=== PATIENT | male | born 1950 | race Caucasian/White ===

== ENCOUNTER 2018-07-30 02:53 | Inpatient (IN) | payer OTHER ==
[~2018-07-30] VITALS: Ht 175.3 cm; Wt 87.5 kg
--- NOTE | 2018-07-30 02:59 | NUR ---
MEDICALLY CLEARED BY DR LEMUS
[2018-07-30] MEDS ORDERED: ATORVASTATIN CALCIUM 80 MG (03:05)
[2018-07-30] MEDS ORDERED: LISINOPRIL 5MG TABLET (03:05)
[2018-07-30] MEDS ORDERED: METFORMIN HYDROCHLORIDE 1000 MG (03:05)
[2018-07-30] MEDS ORDERED: CLOPIDOGREL 75MG TABLET (03:05)
--- NOTE | 2018-07-30 03:28 | NUR ---
TRANSFERED TO [facility] VIA [facility] WITH NO DISTRESS NOTED
[2018-07-30 03:45] VITALS: BP 123/71
[2018-07-30] MEDS ORDERED: LORAZEPAM 1 MG TABLET PO PRN (04:45)
[2018-07-30] MEDS ORDERED: MAG HYDROX/AL HYDROX/SIMETH 30 ML LIQUID UDC PO PRN (04:45)
[2018-07-30] MEDS ORDERED: ACETAMINOPHEN 325 MG TABLET PO PRN (04:45)
[2018-07-30] MEDS ORDERED: MAGNESIUM HYDROXIDE 30 ML LIQUID UDC PO PRN (04:45)
[2018-07-30] MEDS ORDERED: ZOLPIDEM 5 MG TABLET PO PRN (04:45)
--- NOTE | 2018-07-30 04:45 | NUR ---
Admitted to [facility] Dx. Major Depression. Patient awake alert & oriented, no SOB denies chest pain. Admission assessment initiated, remains depressed & refused to undergo head-to-toe body assessment. Patient verbally responsive, no suicidal thought noted. Refused to give contact information of his family. Vital signs are stable. Instructed to take a shower. Patient cooperative.
--- NOTE | 2018-07-30 05:02 | NUR ---
Patient took a shower. Assisted with all needs.
--- NOTE | 2018-07-30 06:21 | NUR ---
Patient still asleep. No acute resp distress.
[2018-07-30 07:30] VITALS: BP 108/65
[2018-07-30] MEDS ORDERED: LISINOPRIL 5 MG TABLET PO SCH (09:00)
[2018-07-30 09:39] LABS: BILIRUBIN,TOTAL 0.3 mg/dL (0.2-1.0); CREATININE 1.1 mg/dL (0.6-1.3); POTASSIUM 5.4 mmol/L (3.5-5.1); TOTAL PROTEIN, SERUM 8.2 g/dL (6.4-8.2)
[2018-07-30 09:47] LABS: BASOPHILS # (AUTO) 0.1 K/uL (0.0-8.0); BASOPHILS % (AUTO) 0.6 % (0.0-2.0); EOSINOPHILS # (AUTO) 0.2 K/uL (0.0-0.7); EOSINOPHILS % (AUTO) 1.9 % (0.0-7.0); HEMATOCRIT 50.1 % (36.7-47.1); HEMOGLOBIN 16.7 g/dL (12.5-16.3); LYMPHOCYTES # (AUTO) 1.4 K/uL (20.0-40.0); LYMPHOCYTES % (AUTO) 17.3 % (20.5-51.5); MEAN CORPUSCULAR HEMOGLOBIN 28.8 uug (23.8-33.4); MEAN CORPUSCULAR HGB CONC 33 g/dL (32.5-36.3); MEAN CORPUSCULAR VOLUME 86.1 fL (73.0-96.2); MONOCYTES # (AUTO) 0.7 K/uL (2.0-10.0); MONOCYTES % (AUTO) 8.2 % (0.0-11.0); NEUTROPHILS # (AUTO) 5.9 K/uL (1.8-8.9); PLATELET COUNT (AUTO) 324 K/uL (152-348); RED BLOOD CELL COUNT(AUTO) 5.82 MIL/uL (4.06-5.63); WHITE BLOOD COUNT (AUTO) 8.2 K/uL (3.6-10.2)
[2018-07-30] MEDS ORDERED: INSULIN REGULAR, HUMAN 300 UNITS/3 ML VIAL SQ PRN (10:00)
[2018-07-30] MEDS ORDERED: SODIUM POLYSTYRENE SULFONATE 15 G/60 ML LIQUID UDC PO ONE (10:00)
[2018-07-30] MEDS ORDERED: DEXTROSE 50% 50 ML DISP.SYRIN IV PRN (10:00)
[2018-07-30] MEDS ORDERED: SODIUM POLYSTYRENE SULF POWDER 15 GM UDC PO ONE (10:30)
[2018-07-30] MEDS: CLOPIDOGREL 75 MG TABLET PO SCH (10:34)
[2018-07-30] MEDS: METFORMIN HCL 500 MG TABLET PO SCH ×2 (10:34→17:57)
--- NOTE | 2018-07-30 10:36 | NUR ---
WOUND CARE CONSULT WOUND CARE RECEIVED CONSULT FOR LEFT BIG TOE CELLULITIS/DTI. WOUND CARE WILL DEFER CONSULT AND TREATMENT PLANS TO DPM DR BARAHONA WHO HAS BEEN NOTIFIED OF THIS CONSULT BY NUCLEAR MEDICINE SPECIALIST. PATIENT WITH AIDE AT 22, WILL SEE PRN.
--- NOTE | 2018-07-30 12:04 | NUR ---
Initial Discharge Note: Patient is a 68 year old male who is homeless. Patient states he lives out of his van and would like to return to his van when ready for discharge. Patient has no family contacts and is self-sufficient. health worker will continue to collaborate with patient and MD on a safe and proper discharge.
[2018-07-30] MEDS: BLOOD SUGAR DIAGNOSTIC 1 EACH STRIP VI SCH ×3 (12:15→20:07)
[2018-07-30] MEDS: INSULIN REGULAR, HUMAN 300 UNIT/3 ML VIAL SQ PRN ×2 (12:18→18:00)
[2018-07-30 16:00] VITALS: BP 101/52
[2018-07-30 20:00] VITALS: BP 118/60
[2018-07-30] MEDS ORDERED: ATORVASTATIN 40 MG TABLET PO SCH (21:00)
[2018-07-30] MEDS ORDERED: INSULIN GLARGINE,HUM 300 UNITS/3 ML CARTRIDGE SQ SCH (21:00)
--- NOTE | 2018-07-31 06:53 | NUR ---
Pt refused AM labs and accu check x2.
[2018-07-31] MEDS: BLOOD SUGAR DIAGNOSTIC 1 EACH STRIP VI SCH (06:55)
[2018-07-31] MEDS ORDERED: ESCITALOPRAM OXALATE 10 MG TABLET PO SCH (09:00)
[2018-07-31] MEDS ORDERED: LISINOPRIL 5 MG TABLET PO SCH (09:00)
--- NOTE | 2018-07-31 09:30 | NUR ---
Gps/Pattern Developer- Patient's refusing to stay, 72 hour hold expires at [address] Handy was called and informed by Director Religious Education . Explained well to patient patient process and consequences , was given options, patient refused to stay Voluntary, wants to leave. Requesting to have shower first. Patient alert, oriented, denies S.I.at this time , verbalized feelings of being sad, but able to take care od self per patient. Plan to take bus and go to his friend's house in [facility] area per pt.
[2018-07-31] MEDS: METFORMIN HCL 500 MG TABLET PO SCH (09:40)
[2018-07-31] MEDS: CLOPIDOGREL 75 MG TABLET PO SCH (09:40)
--- NOTE | 2018-07-31 11:40 | NUR ---
Gps/Testing Tech- All belongings given back to patient. Left AMA , no complaints noted.
--- NOTE | 2018-08-02 10:41 | NUR ---
[facility] DC NOTE: Patient left [facility] on 07/31/2018 at 11:40am. Patient hold on 07/31/2018 11:26am. Patient was offered to sign voluntary, but per nursing notes, patient refused to stay and chose to take bus and go to his friend's house in the [place] area. As patient is homeless, social worker aide called number [[phone]] listed on face sheet and spoke with patient. sort line worker offered homeless resources to patient including homeless shelters, mental health resources. Per patient, he does not "need help with mental health problems" and refused resources. Patient also refused care home resources stating they are "awful". sort line worker instructed patient to seek emergency medical attention or call 911 should he feel he is experiencing a psychiatric emergency. Patient in agreement with information. Addendum: 08/02/18 at 1121 by BEKAH CANTRELL sort line worker received phone call from [place] after daycare teacher, Caridad [[phone]], inquiring if patient needed after care appointments. sort line worker informed Caridad that patient chose to leave [facility] on 07/31/2018. sort line worker also informed Caridad that this rfp writer has just called patient to provide homeless resources, but patient refused. Per Caridad, she will call patient to provide aftercare appointments. sort line worker provided her with patient phone number [[phone]].
--- NOTE | 2018-08-02 11:38 | NUR ---
Firearms report: cooler worker completed and submitted at [employer] for a 5150 DTS certification.
== END 2018-07-31 11:40 | disposition left against medical advice (07) | DRG 885 ==
LOC: ER 02:58 → GPS 03:18
PROVIDERS: ADMIT Psychiatry & Neurology Psychiatry; ATTEND Internal Medicine
DX: F32.3 Major depressive disorder, single episode, severe with psychotic features (principal); E11.65 Type 2 diabetes mellitus with hyperglycemia; E11.621 Type 2 diabetes mellitus with foot ulcer; L97.521 Non-pressure chronic ulcer of other part of left foot limited to breakdown of skin; L03.032 Cellulitis of left toe; E11.42 Type 2 diabetes mellitus with diabetic polyneuropathy; I25.10 Atherosclerotic heart disease of native coronary artery without angina pectoris; E78.5 Hyperlipidemia, unspecified; I10 Essential (primary) hypertension; Z59.0 Homelessness; Z88.0 Allergy status to penicillin; Z88.2 Allergy status to sulfonamides; Z79.84 Long term (current) use of oral hypoglycemic drugs; Z95.1 Presence of aortocoronary bypass graft
CPT/HCPCS: 36415; 85025; A4663; J1815